=== PATIENT | male | born 1990 | race Hispanic/Latino ===

== ENCOUNTER 2019-03-09 21:21 | Emergency (ER) | payer OTHER | END 2019-03-09 22:42 | disposition home or self-care (01) | LOC: EDH 21:21 | DX: J98.01 Acute bronchospasm (principal); R07.89 Other chest pain; Z72.0 Tobacco use | CPT/HCPCS: 93005 ==

== ENCOUNTER 2019-08-01 11:03 | Emergency (ER) | payer SELFPAY ==
[2019-08-01] MEDS ORDERED: FAMOTIDINE 20MG TAB 20 MG TAB ONE (12:12)
[2019-08-01] MEDS ORDERED: ONDANSETRON ODT 4 MG TAB ONE (12:13)
== END 2019-08-01 12:19 | disposition home or self-care (01) ==
LOC: EDH 11:03
DX: K52.9 Noninfective gastroenteritis and colitis, unspecified (principal); Z72.0 Tobacco use

== ENCOUNTER 2019-09-14 15:37 | Emergency (ER) | payer SELFPAY | END 2019-09-14 16:06 | disposition home or self-care (01) | LOC: EDH 15:37 | DX: J02.9 Acute pharyngitis, unspecified (principal); Z72.0 Tobacco use | CPT/HCPCS: 99281 ==